=== PATIENT | male | born 1980 | race Caucasian/White ===

== ENCOUNTER 2023-07-19 16:52 | Emergency (ER) | payer OTHER, SELFPAY ==
[2023-07-19] VITALS (12 sets, daily range): BP systolic 106–130; BP diastolic 38–63; PULSE 83–96; RESP 16–22; TEMP 36.4–36.9; O2SAT 99–100
--- NOTE | ~2023-07-19 | CT_ITS ---
EXAMINATION: CT brain wo con DATE: 07/19/2023 19:17 INDICATION: weakness . TECHNIQUE: Computed tomography (CT) of the head was performed without intravenous contrast. The mA wa s adjusted according to patient size. Iterative reconstruction technique was employed. The dose-lengt h product was 605.33 mGy-cm. COMPARISON: None. FINDINGS: No acute intracranial hemorrhage or extra-axial fluid collection. No hydrocephalus, mass, or herniation. No acute ischemic infarct. Unremarkable dural venous sinus attenuation. No acute osseous abnormality. Right maxillary mucosal thickening, partial opacification of multiple ethmoid sinuses, the remaining aerated spaces are clear. IMPRESSION: No acute intracranial process. Reviewed, dictated and finalized at location K. NG SPEC
--- NOTE | ~2023-07-19 | CT_ITS ---
EXAMINATION: CTA chest PE abdomen pel DATE: 07/19/2023 19:18 INDICATION: elevated dimer, coagulopathy TECHNIQUE: Computed tomography angiography (CTA) of the chest was performed with 100 mL Omnipaque-350 intravenous contrast timed to evaluate the pulmonary arteries, followed by portal venous phase imagi ng of the abdomen and pelvis. Coronal maximum intensity projection 3D-reconstructions were created by the technologist. The dose-length product (DLP) was 1455.61 mGy-cm. Automated exposure control and i terative reconstruction technique were employed. COMPARISON: None. FINDINGS: CHEST: Lung parenchyma and airways: Clear. Pleura: Unremarkable. Thoracic inlet, axillae and chest wall: With minimal bilateral symmetric gynecomastia. Thoracic aorta: Normal. Mediastinum: Normal. Heart and pericardium: Normal. Coronary artery calcifications: . Thoracic bones: No acute osseous finding. Pulmonary arteries: Study quality: Non-diagnostic degree of enhancement in the pulmonary arteries (le ss than 150 Hounsfield units at the main pulmonary artery). No central pulmonary emboli detected. ABDOMEN/PELVIS: Liver: Enlarged nodular liver Biliary/Gallbladder: No bile duct dilation. Pancreas: No mass or duct dilation. Spleen: Normal. Adrenals:No mass. Kidneys: No suspicious mass, obstructing stone, or hydronephrosis punctate nonobstructing right renal calcifications. GI tract: No small or large bowel dilation. Normal appendix. Mesentery/Peritoneum: No ascites, mass, or free air. Retroperitoneum: No mass. Pelvis: Pelvic organs are within normal limits. Soft Tissues: Subcutaneous stranding over the left hip. Edema present within the left hip musculature , most notably within the proximal hamstring musculature and to a lesser extent the gluteus magan. Abdominopelvic bones: No acute osseous finding. IMPRESSION: Nondiagnostic pulmonary angiogram with insufficient degree of pulmonary arterial contrast enhancement , segmental and more distal arteries not adequately assessed. No central embolus detected. Reinjectio n not performed due to renal status. Hepatosplenomegaly. Cirrhosis. Left hip contusion/edema, with edema/inflammation in the left hip musculature, possibly representing muscle strains, correlate with history of trauma and hip pain. Cellulitis/myositis not excluded. Reviewed, dictated and finalized at location K. PROCESSING SUPERVISOR IMPRESSION: Nondiagnostic pulmonary angiogram with insufficient degree of pulmonary arteria l contrast enhancement, segmental and more distal arteries not adequately asses sed. No central embolus detected. Reinjection not performed due to renal status . Hepatosplenomegaly. Cirrhosis. Left hip contusion/edema, with edema/inflammation in the left hip musculature, possibly representing muscle strains, correlate with history of trauma and hip pain. Cellulitis/myositis not excluded.
--- NOTE | ~2023-07-19 | XR_ITS ---
EXAM: XR forearm LT 2V DATE: 07/19/2023 19:57 HISTORY: bruising . COMPARISON: None available. FINDINGS: Normal mineralization. No fracture or dislocation. No lytic or blastic lesion. Joint space s are maintained. No erosion or periosteal change. Soft tissues within normal limits. IMPRESSION: No acute osseous finding in the left forearm. Reviewed, dictated and finalized at location K. E SUPERVISOR
--- NOTE | ~2023-07-19 | XR_ITS ---
EXAM: XR hip LT 2V w AP pelvis, XR femur LT min 2V DATE: 07/19/2023 19:57 HISTORY: bruising . COMPARISON: CT abdomen and pelvis, same date. FINDINGS: Normal mineralization. No fracture or dislocation. No lytic or blastic lesion. Mild degene rative change in the bilateral hips and left knee. No erosion or periosteal change. Soft tissues with in normal limits. IMPRESSION: No acute osseous finding in the pelvis, left hip, or left femur. Reviewed, dictated and finalized at location K. ENGER ATTENDANT IMPRESSION: No acute osseous finding in the pelvis, left hip, or left femur.
--- NOTE | ~2023-07-19 | XR_ITS ---
EXAM: XR humerus LT DATE: 07/19/2023 19:57 HISTORY: Altered mental status, bruising. COMPARISON: None available. FINDINGS: Normal mineralization. No fracture or dislocation. No lytic or blastic lesion. Joint space s are maintained. No erosion or periosteal change. Soft tissues within normal limits. IMPRESSION: No acute osseous finding in the left humerus. Reviewed, dictated and finalized at location K. ING PERSONS INVESTIGATOR
--- NOTE | ~2023-07-19 | XR_ITS ---
EXAMINATION: XR chest 1V Exam Date/Time: 07/19/2023 19:20 WINDOW TRIMMER HISTORY: weakness Comparison: CTPA with abdomen and pelvis, same date. RESULT: Lines, tubes, and devices: None. Lungs and pleura: Clear. Cardiomediastinal silhouette: Stable. Other: No acute osseous or upper abdominal finding. IMPRESSION: No acute cardiopulmonary process. Reviewed, dictated and finalized at location K. OW TRIMMER
[2023-07-19 17:33] LABS: Mean Corpuscular HGB Conc 32.2 g/dl (32-36); Mean Corpuscular Hemoglobin 39.6 pg (26-34); Mean Corpuscular Volume 122.9 fl (80-100); Mean Platelet Volume 12.8 fl (7.4-10.4); Platelet Count Result 80 k/mm3 (150-375); Red Blood Count 0.96 M/mm3 (4.6-6.20); Red Cell Distribution Width 18.5 % (11.5-14.5); White Blood Count 18.2 K/mm3 (4.5-10.0)
[2023-07-19 17:41] LABS: Ammonia 52 umol/L (9-30)
--- NOTE | 2023-07-19 17:43 | ED.GENADULT ---
HPI - General Adult General Chief complaint: Unspecified <SHARON Bhagat Last Filed: 07/24/23 09:29> Stated complaint: hallucinating, Jaundice <SHARON Bhagat Last Filed: 07/24/23 09:29> Time Seen by Provider: 07/19/23 17:31 <Piedad Crawford PA-C - Last Filed: 07/24/23 09:29> Source: patient and family <SHARON Bhagat Last Filed: 07/24/23 09:29> Mode of arrival: wheelchair <SHARON Bhagat Last Filed: 07/24/23 09:29> Limitations: altered mental status <SHARON Bhagat Last Filed: 07/24/23 09:29> History of Present Illness HPI narrative: This is a 42 year old male that presents to the ER for altered mental status. His mother reports he started to sound very confused yesterday on the phone. She convinced him to let her stay the night. He was up all night with hallucinations and very confused. History of alcohol abuse. Reports she has been trying to get him to go to the doctor all year as he has been yellow, but he has not agreed. Patient oriented to self, unable to provide much history. <Piedad Crawford PA-C - Last Filed: 07/24/23 09:29> Related Data Allergies/adverse reactions: Allergies Allergy/AdvReac Type Severity Reaction Status Date / Time No Known Allergies Allergy Verified 07/19/23 17:14 <Piedad Crawford PA-C - Last Filed: 07/24/23 09:29> Review of Systems Review of Systems: ROS unobtainable: Yes unobtainable due to mental status <SHARON Bhagat Last Filed: 07/24/23 09:29> [facility] Past Medical History Medical History: Medical History (Updated 07/21/23 @ 00:00 by See Bains) History of alcohol abuse <SHARON Bhagat Last Filed: 07/24/23 09:29> Social History Social History: Social History (Updated 12/31/23 @ 17:50 by Piedad Crawford PA-C) Alcohol intake: current <Piedad Crawford PA-C - Last Filed: 07/24/23 09:29> Exam Narrative: GENERAL: Chronically ill-appearing, well-nourished, and in no acute distress. HEAD: Normocephalic, atraumatic. EYES: PERRLA and EOMI. Scleral icterus ENT: Nares clear, no rhinorrhea or epistaxis. Mucous membranes dry. Oropharynx without tonsillar hypertrophy exudate or other lesions. Bilateral TMs pearly mata non-bulging NECK: Supple. No adenopathy or masses. CHEST: Clear to auscultation. No respiratory distress. No wheezes rales or rhonchi HEART: Regular rate and rhythm. No murmur heard. Normal peripheral pulses. ABDOMEN: Soft, nontender, nondistended, normal active bowel sounds. EXTREMITIES: Normal range of motion. No edema. Strength equal in bilateral upper and lower extremities (4/5). Compartments are soft SKIN: Warm, dry, no rash. Bruising to the left arm and leg. NEURO: No focal deficits. Alert and oriented x1. PSYCH: Normal mood and affect <Piedad Crawford PA-C - Last Filed: 07/24/23 09:29> Course Course Emergency Course: Patient and family updated on his workup and need for transfer for higher level of care <Piedad Crawford PA-C - Last Filed: 07/24/23 09:29> Patient and family updated on his workup and need for transfer for higher level of care Zych: 0700 Signed out to oncoming physician transfer outside hospital. No acute events overnight. <Shawn Thakur MD - Last Filed: 07/20/23 06:38> CANE BURNER/PA Physician Supervision For this patient encounter, I reviewed the CANE BURNER or PA documentation, treatment plan, and medical decision making and/or I had [id number] time with this patient. I performed all aspects of the MDM as documented. <Carol Alonso MD - Last Filed: 07/20/23 22:49> Consultations Consultation #1: Spoke with LUZ Orantes in the ICU at [facility]. Will repeat H/H, lactic and INR and re-assess if patient needs ICU. After repeat patient will be going to the ICU, they will be getting him a bed <Piedad Crawford PA-C - Last Filed: 07/24/23 09:29> Date: 07/19/23 <Piedad Crawford PA-C - Last Filed:
[2023-07-19 17:46] LABS: Ethanol < 10 mg/dL (<10)
[2023-07-19 17:48] LABS: Hemoglobin 3.8 g/dL (14.0-18.0)
[2023-07-19 17:49] LABS: Hematocrit 11.8 % (42.0-52.0)
[2023-07-19 17:51] LABS: Alanine Aminotransferase 95 U/L (6-50); Albumin Level 4.1 g/dL (3.5-5.1); Alkaline Phosphatase 109 U/L (38-126); Anion Gap 29 mmol/L (8-16); Aspartate Amino Transferase 251 U/L (17-59); Bilirubin,Total 18.8 mg/dL (0.2-1.3); Blood Urea Nitrogen 50 mg/dL (9-20); CRP 1.1 mg/dL (<1.0); Calcium 9.5 mg/dL (8.4-10.2); Carbon Dioxide 10 mmol/L (22-30); Chloride 96 mmol/L (98-107); Estimated CRCL calculation 44 ml/min; Estimated Glomerular Filt Rate 35; Glucose 103 mg/dL (65-110); Lipase 371 U/L (23-300); Potassium 4.9 mmol/L (3.4-5.0); Sodium 135 mmol/L (137-145)
[2023-07-19 17:53] LABS: Anisocytosis 1+ (NORMAL); Band Neutrophils Percent 1 % (0-6); Lymphocytes Absolute Manual 2.73 K/mm3 (1.1-4.5); Lymphocytes Percent Manual 15 % (18-44); Macrocytosis 1+ (NORMAL); Metamyelocytes Percent 1 %; Monocytes Absolute Manual 1.09 K/mm3 (0.1-0.90); Monocytes Percent Manual 6 % (3-9); Myelocytes Percent 2 %; Neutrophils Absolute Manual 13.83 K/mm3 (1.3-6.7); Neutrophils Percent Manual 75 % (46-73); Nucleated Red Blood Cells 2 %; Ovalocytes 1+ (NORMAL); Platelet Estimate Decreased (Adequate); Poikilocytosis 1+ (NORMAL); Total Cells Counted 100
[2023-07-19 17:54] LABS: Acanthocytes 1+ (NORMAL); Schistocytes 1+ (NORMAL)
[2023-07-19 18:03] LABS: INR 4.5; Partial Thromboplastin Time 57.4 SECONDS (22.3-36.8); Prothrombin Time 46.6 Seconds (11.1-14.7)
--- NOTE | 2023-07-19 18:05 | PC.NURSE ---
Lab notified of rapid blood release ordered signed by Piedad Crawford PA-C and tubed to lab.
[2023-07-19 18:13] LABS: Fibrinogen 89 mg/dl (215-510)
[2023-07-19 18:17] LABS: Lactic Acid Reflex 16.2 mmol/L (0.7-2.0)
[2023-07-19 18:27] LABS: D Dimer > 20.00 ug/mL (<0.48)
[2023-07-19 18:35] LABS: Magnesium 2.1 mg/dL (1.6-2.3)
[2023-07-19 18:39] LABS: Appearance Urine Cloudy (Clear); Bacteria Urine None Seen /hpf; Bilirubin Urine 3+ (Negative); Blood Urine Negative (Negative); Color Urine Dark Yellow (Yellow); Glucose Urine UA Negative (Negative); Ketones Urine Trace mg/dL (Negative); Leukocyte Esterase Ur 1+ LEU/UL (Negative); Need Manual Microscopic Reviewed; Nitrate Urine Positive (Negative); Non Pathogenic Casts >20; Protein Urine Trace mg/dL (Negative); Specific Grav Ur 1.019 (1.001-1.035); Squamous Epithelial Cell Urine Moderate /hpf (Few); WBC Urine 0-5 /hpf
[2023-07-19 18:40] LABS: Add Urine Microscopic? YES
[2023-07-19 18:43] LABS: Amphetamine Screen Urine Negative (Negative); Barbiturate Screen Urine Negative (Negative); Benzodiazepines Screen Urine Negative (Negative); Cannabinoid Screen Urine Negative (Negative); Cocaine Screen Urine Negative (Negative); Methadone Screen Urine Negative (Negative); Opiate Screen Urine Negative (Negative); Phencyclidine Screen Urine Negative (Negative)
[2023-07-19] MEDS: SODIUM CHLORIDE 0.9% IV 250 ML 30 ML IV CONT ×2 (18:53→19:53)
[2023-07-19] MEDS: TUBING, BLOOD SET 1 EACH XX ×2 (18:53→19:53)
[2023-07-19 18:59] LABS: Influenza A QL RT-PCR Negative (Negative); Influenza B QL RT-PCR Negative (Negative); RSV RNA, RT-PCR Negative (Negative); SARS-CoV-2 RNA PCR Positive (Negative)
--- NOTE | 2023-07-19 19:08 | ECG_ITS ---
Measurements Intervals [place] Rate: 93 P: 36 OR: 152 QRS: 46 QRSD: 105 T: 38 QT: 385 QTc: 480 Interpretive Statements SINUS RHYTHM BASELINE ARTIFACT= III, AVF, V3, V5 NORMAL ECG NO PREVIOUS ECG AVAILABLE FOR COMPARISON Electronically Signed On 07-20-2023 8:18:34 GEOPHYSICAL PARTY CHIEF by Orlin Richardson D.O.
[2023-07-19 20:33] LABS: Creatine Kinase 1428 U/L (55-170)
[2023-07-19 20:46] LABS: Troponin I 0.017 ng/mL (0.000-0.034)
[2023-07-19 20:46] LABS: Reflex Lactic Acid Yes or No Add Lactic
[2023-07-19 21:14] LABS: Hematocrit 15.7 % (42.0-52.0); Hemoglobin 5.1 g/dL (14.0-18.0)
[2023-07-19 21:25] LABS: INR 4.5; Prothrombin Time 46.8 Seconds (11.1-14.7)
[2023-07-19 21:33] LABS: Lactic Acid Reflex 7.4 mmol/L (0.7-2.0)
[2023-07-20] VITALS (67 sets, daily range): BP systolic 101–130; BP diastolic 45–81; PULSE 74–97; RESP 13–23; TEMP 36.6–36.9; O2SAT 95–100
[2023-07-20] MEDS: SODIUM CHLORIDE 0.9% IV 250 ML 30 ML IV CONT (00:14)
[2023-07-20] MEDS: SODIUM CHLORIDE 0.9% IV 250 ML (02:11)
[2023-07-20 03:56] LABS: Hemoglobin 6.9 g/dL (14.0-18.0)
== END 2023-07-20 10:08 | disposition short-term general hospital (02) ==
PROVIDERS: Emergency Medicine; Emergency Provider Physician Assistant
DX: D64.9 Anemia, unspecified (principal); K74.60 Unspecified cirrhosis of liver; D69.6 Thrombocytopenia, unspecified; U07.1 COVID-19
CPT/HCPCS: 36415; 36430; 70450; 71045; 71275; 73060; 73090; 73502; 73552; 74177; 80053; 80307; 81001; 82140; 82550; 83605; 83690; 83735; 84484; 85014; 85018; 85025; 85380; 85384; 85610; 85730; 86140; 86850; 86900; 86901; 86923; 87040; 87077; 87086; 87637; 93005; 96360; 96361; 99285; J7050; P9016; P9017; Q9967